=== PATIENT | female | born 1945 | race Caucasian/White ===

== ENCOUNTER 2016-04-21 06:22 | Inpatient (IN) | payer MEDICARE, OTHER ==
--- NOTE | ~2016-04-21 | DS ---
Discharge Summary [facility] [address] [place]. [address] NAME: MARYJANE RIDLEY : 45 STATUS : DIS IN PAT#: [id number] AGE: 70 ADM/REG DATE : 04/21/16 MR#: [id number] REPORT SERV DATE: 04/27/16 DICTATED BY: AMY ALEXANDER II DATE: 04/26/16 REPORT STATUS : Draft TRANSCRIBED BY: MODL DATE: 04/26/16 ADMISSION DATE: 04/21/2016 DISCHARGE DATE: 04/26/2016 DISCHARGE DIAGNOSES: 1. Acute sinusitis. 2. Acute bronchitis with questionable pneumonia. 3. Essential hypertension. 4. Syncopal episode, possibly secondary to hydralazine versus vasovagal. 5. Epistaxis. 6. Paroxysmal atrial fibrillation, on Eliquis. 7. Hyponatremia, resolved. 8. Diarrhea, resolved. BRIEF HISTORY OF PRESENT ILLNESS: The patient is a 70-year-old female with the above history, who presented to [facility] due to cough and sinus congestion concerning for pneumonia. For detailed history and physical examination, please see Dr. Marlys Boucher's note from 04/21/2016. HOSPITAL COURSE: For details of the patient's hospital course from date of admission through 04/25/2016, please see Dr. Hernandez's interim summary from that date. Regarding the patient's bronchitis and sinusitis, the patient has been on Levaquin for five days. Notes that she has been admitted, has had no fever, and her white count is normal. She still has some dry nonproductive cough as well as sinus congestion though she notes some improvement. She has some crackles in her lung and a CT scan done of her abdomen on admission showed some possible right lower lobe pneumonia versus atelectasis but no obvious pneumonia. We will continue her Levaquin for a total of seven days. Otherwise, she has had difficulty maintaining control of her blood pressure while in the hospital. Her spironolactone was held on admission, and she was given p.r.n. hydralazine. The patient states she reacted very poorly after getting IV hydralazine, felt sick, and that is when she apparently had a syncopal episode getting back in bed from the bathroom. Carotid Dopplers are normal, telemetry is unremarkable, and currently she has been asymptomatic for several days. At this point, we will continue her home regimen for blood pressure. We will resume her Eliquis for paroxysmal atrial fibrillation. She has not had any further epistaxis and her hemoglobin is stable. At this point, she is stable for discharge, and we will have her follow up with Dr. Posadas in the next week or two. DISCHARGE MEDICATIONS: 1. Eliquis 5 mg p.o. b.i.d. 2. Lipitor 20 mg p.o. at bedtime. 3. Vitamin B tab daily. 4. Coreg 6.25 mg p.o. b.i.d. 5. Cozaar 100 mg p.o. at bedtime. 6. Multivitamin daily. 7. Solano-3 fatty acid 1200 mg p.o. before lunch. 8. Prilosec 20 mg p.o. daily p.r.n. Discharge Summary [address] [address] NAME: MARYJANE RIDLEY : 45 STATUS : DIS IN PAT#: [id number] AGE: 70 ADM/REG DATE : 04/21/16 MR#: [id number] REPORT SERV DATE: 04/27/16 DICTATED BY: AMY ALEXANDER II DATE: 04/26/16 REPORT STATUS : Draft TRANSCRIBED BY: AMILCAR DATE: 04/26/16 9. Aldactone 12.5 mg p.o. b.i.d. 10.Vitamin E tab. 11.Levaquin 750 mg p.o. daily for two more days. DISCHARGE INSTRUCTIONS: The patient will follow with Dr. Franck Posadas in one to two weeks. EVAN/AMILCAR y Alexander II, MD / [id number] CC: MD Franck Shaikh II, M.D.
--- NOTE | ~2016-04-21 | IDS ---
Interim Discharge Summary [facility] [address] [place]. [address] NAME: MARYJANE RIDLEY : 45 STATUS : ADM IN PAT#: [id number] AGE: 70 ADM/REG DATE : 04/21/16 MR#: [id number] REPORT SERV DATE: 04/25/16 DICTATED BY: EDER HERNANDEZ DATE: 04/25/16 REPORT STATUS : Draft TRANSCRIBED BY: MODL DATE: 04/25/16 ADMISSION DATE: 04/21/2016 DISCHARGE DATE: DATE OF INTERIM SUMMARY: 04/25/2016. INTERIM DIAGNOSES: 1. Benign essential hypertension. 2. Syncope, most likely vasovagal in nature. 3. Epistaxis. 4. Paroxysmal atrial fibrillation. 5. Hyponatremia, now resolved. 6. Acute bronchitis, stable. 7. Acute sinusitis, currently on oral Levaquin. 8. Diarrhea, resolved. 9. Does not appear to have gastrointestinal bleeding as hemoglobin and hematocrit remains stable. BRIEF HISTORY OF PRESENT ILLNESS: The patient is a 70-year-old female with multiple comorbidities who presented to the hospital with cough and upper respiratory-type symptoms thinking that she may have pneumonia, so she was admitted. For detailed history and physical exam, please see note dictated by Dr. Marlys Boucher on 04/21/2016. HOSPITAL COURSE: After being admitted to the hospital, this patient was given broad-spectrum antibiotics, aggressive nebulizing treatments. She had nosebleed and then she had black tarry stools. Dr. Boucher thought that she had a gastrointestinal bleed, however, I have monitored her H and H over the last four days and it has remained stable. Her nosebleed has resolved as well. We have reassured the patient. CT of the face was done and that revealed acute sinusitis. So, we have switched her to oral Levaquin. She has been doing well. She is off oxygen. She is feeling better. Her hyponatremia and her hypokalemia currently have resolved. At this time, the issue remains that she had a syncopal episode day before yesterday getting up to the bathroom and this was thought to be mainly due to use of hydralazine. We have discontinued her hydralazine. We have restarted all her blood pressure medications and I have increased her Coreg to 6.25 mg twice daily for further management of blood pressure. If her blood pressure remained stable and she is ambulatory, she may be discharged in the home setting in the morning. We did do a two-dimensional echocardiogram, which showed an ejection fraction of 55% with mild diastolic dysfunction, but otherwise, unremarkable. Carotid ultrasound of the neck has been pending. MRI of the head was not done because the patient had no neurological deficits. DISPOSITION: Will be home when blood pressure stable. ANGELLA/AMILCAR Interim Discharge Summary [address] [place]. [address] NAME: MARYJANE RIDLEY : 45 STATUS : ADM IN [facility]#: [id number] AGE: 70 ADM/REG DATE : 04/21/16 MR#: [id number] REPORT SERV DATE: 04/25/16 DICTATED BY: EDER HERNANDEZ DATE: 04/25/16 REPORT STATUS : Draft TRANSCRIBED BY: AMILCAR DATE: 04/25/16 Eder Hernandez M.D. / [id number] CC: Eder Hernandez M.D.
--- NOTE | ~2016-04-21 | HP ---
History And Physical [facility] [address] [place]. [address] NAME: MARYJANE RIDLEY : 45 STATUS : ADM IN [facility]#: [id number] AGE: 70 ADM/REG DATE : 04/21/16 MR#: [id number] REPORT SERV DATE: 04/21/16 DICTATED BY: MARLYS BOUCHER DATE: 04/21/16 REPORT STATUS : Draft TRANSCRIBED BY: MODL DATE: 04/21/16 DATE OF ADMISSION: 04/21/2016 CHIEF COMPLAINT: Cough, congestion, weakness, decreased p.o. intake, and diarrhea for one week. HISTORY OF PRESENT ILLNESS: This is a very pleasant 70-year-old female. She has a history of hypertension, GERD, history of breast cancer with left mastectomy and reconstruction, prior history of hyponatremia, history of paroxysmal atrial fibrillation, that she has been presenting today to [facility] with complaints starting about one week ago with cough, congestion, rhinorrhea, decreased p.o. intake, myalgia, arthralgia, and subjective fevers as well as weakness. It is important to note that she had significant decreased p.o. intake with a diminished appetite and very poor p.o. intake and as a result, she called her primary care provider, who prescribed some amoxicillin that she took it only for one day. This morning she developed some diarrhea as well and as a result feeling so weak, sick, and tired she presented to [facility]. She did not have any abdominal pain, nausea, or vomiting. She feels extremely tired and weak. She does not drink excessive water. In fact, she has poor p.o. intake over the last couple of few days. After she has been evaluated in the emergency room and after initial evaluation, Hospitalist Service has been asked for admission, further evaluation, and treatment. PAST MEDICAL HISTORY: Significant for hypertension, GERD, history of breast cancer with left mastectomy and reconstruction and also history of paroxysmal atrial fibrillation. PAST SURGICAL HISTORY: Hysterectomy and left mastectomy with reconstruction. SOCIAL HISTORY: She is a nonsmoker, no drinking, no IV drugs. She quit smoking in 1997. ALLERGIES: SHE DOES NOT HAVE ANY DRUG ALLERGY EXCEPT TO SHE SAID UNKNOWN BLOOD CLOTTING MEDICINE. FAMILY HISTORY: Significant for coronary artery disease. MEDICATIONS: At home include Coreg, Eliquis, omeprazole, also losartan, atorvastatin, and Aldactone. REVIEW OF SYSTEMS: A 14-point review of systems has been obtained and pertinent positive has been listed into the history of present illness. Otherwise, negative except those underlying above. PHYSICAL EXAMINATION: VITAL SIGNS: Currently, the patient is afebrile. Blood pressure 141/74, heart rate 69, respiratory rate 18, saturating 96% on room air. GENERAL: She is a very pleasant, well-developed, well-nourished female, sick appearing, in no acute distress. She is alert and oriented x3. Nonfocal. She follows commands appropriately. History And Physical [address] [address] NAME: MARYJANE RIDLEY : 45 STATUS : ADM IN [facility]#: [id number] AGE: 70 ADM/REG DATE : 04/21/16 MR#: [id number] REPORT SERV DATE: 04/21/16 DICTATED BY: MARLYS BOUCHER DATE: 04/21/16 REPORT STATUS : Draft TRANSCRIBED BY: AMILCAR DATE: 04/21/16 HEENT: Show normocephalic, atraumatic. Throat is clear. Pupils are round and reactive to light. Extraocular movements intact. NECK: No JVD. No lymphadenopathy. No thyromegaly appreciated. CHEST: Evaluation shows bilateral air entry. Clear anteroposterior. No wheezes, crackles, or rhonchi appreciated. CARDIOVASCULAR: She has regular rate and rhythm. S1, S2 positive. No S3, no S4. No murmurs, rubs, or gallops appreciated. ABDOMEN: Soft, positive bowel sounds. Nontender. No guarding. No rebound. EXTREMITIES: No clubbing, cyanosis, or edema. NEUROLOGIC: She is alert and oriented x3. She is nonfocal. She follows commands appropriately. LABORATORY DATA: Labs from today include sodium 125, potassium 4.4, chloride 93, CO2 of 19, BUN 18, creatinine 0.77, glucose is 99. Her white count is 3.9, hemoglobin 12.9, hematocrit 37.2, platelets are 136, and her influenza screen has been negative. She has chest EKG shows normal sinus rhythm and her chest x-ray PA and lateral performed in the emergency room shows lungs clear, heart of normal size. ASSESSMENT AND PLAN: This is a very pleasant 70-year-old female with, 1. Hyponatremia likely disease multifactorial secondary to medications, decreased p.o. intake with some diarrhea as well. Suspect this is volume depleted. I am going to hydrate her. We are going to check some TSH and free T4. We are going to check a.m. cortisol level. We are going to check serum osmolality and urine for sodium, creatinine osmolality. We are going to hold her Aldactone as well and encourage p.o. intake and hydrate her as well. 2. Acute bronchitis with rhino-bronchial syndrome. We are going to place her on antibiotics through the IV. Continue hydration, Mucinex, Nasonex. We will check strep screen as well, blood cultures as well as UA and urine cultures. Nebulizers p.r.n. 3. Hypertension. We are going to continue her Coreg, continue her losartan and hold her Aldactone, p.r.n. hydralazine as needed. 4. History of paroxysmal atrial fibrillation. Continue her Eliquis. 5. Hyperlipidemia, continue her atorvastatin. 6. History of gastroesophageal reflux disease. We will continue her home medication. We will place her on electrolyte protocol as well. Further workup and recommendation pending above. CF/MODL Marlys Boucher M.D. / [id number] CC: Marlys Boucher M.D.
[~2016-04-21 06:22] MED LIST: BP MEDICATION; CAT1 PO; COZAAR100 MG PO; FISH-EPA1000 MG PO; MULTIVITAMI1 PO; NORV10 PO; OMEPRAZOLE PO; PRILOSEC OTC20 MG PO; PROTONIX PO; TETRACYCLINE250 MG OR; ZIAC2 PO; ZOFRAN4 PO
[2016-04-21 07:44] LABS: CALCIUM, SERUM 8.4 MG/DL (8.5-10.4); CHLORIDE, SERUM 93 MMOL/L (96-112); CREATININE 0.78 MG/DL (0.55-1.02); GFR AFRICAN AMERICAN 89 ML/MIN (>=60); GFR NON AFRICAN AMERICAN 77 ML/MIN (>=60); GLUCOSE, SERUM 99 MG/DL (60-99); SODIUM, SERUM 125 MMOL/L (135-148)
[2016-04-21 07:44] LABS: INFLUENZA A SCREEN NEGATIVE (NEGATIVE); INFLUENZA B SCREEN NEGATIVE (NEGATIVE)
[2016-04-21 07:45] LABS: BUN (BLOOD UREA NITROGEN) 10 MG/DL (6-23); CO2 (CARBON DIOXIDE) 19 MMOL/L (24-34); POTASSIUM, SERUM 4.4 MMOL/L (3.5-5.3)
[2016-04-21 07:51] LABS: BASOPHILS 0.3 %; BASOPHILS ABSOLUTE 0.01 10/3/uL (0.0-0.16); EOSINOPHILS 0.3 %; EOSINOPHILS ABSOLUTE 0.01 10/3/uL (0.0-0.53); HEMATOCRIT 37.2 % (36.0-48.0); HEMOGLOBIN 12.9 g/dL (12.0-16.0); IMMATURE GRANULOCYTES 0.3 %; IMMATURE GRANULOCYTES ABSOLUTE 0.01 10/3/uL (0.0-0.11); LYMPHOCYTES 15.3 %; LYMPHOCYTES ABSOLUTE 0.59 10/3/uL (0.67-4.30); MEAN CORPUS HGB CONC 34.7 g/dL (32.0-36.0); MEAN CORPUSCULAR HEMOGLOB 29.5 pg (26.0-34.0); MEAN CORPUSCULAR VOLUME 84.9 fL (80-100); MEAN PLATELET VOLUME 10.4 fL (9.2-13.0); MONOCYTES 7.5 %; MONOCYTES ABSOLUTE 0.29 10/3/uL (0.21-1.20); NEUTROPHILS 76.3 %; NEUTROPHILS ABSOLUTE 2.94 10/3/uL (2.02-8.40); RBC DISTRIBUTION WIDTH 13.3 % (12.0-16.0); RED CELL COUNT 4.38 10/6/uL (4.0-5.6); WHITE BLOOD CELLS 3.9 10/3/uL (4.5-10.5)
[2016-04-21 08:00] LABS: MANUAL DIFF NO %; PLATELET COUNT 136 10/3/uL (150-400)
[2016-04-21] MEDS ORDERED: FISH OIL1200 MG PO (09:08)
[2016-04-21] MEDS ORDERED: COREG6 PO (09:09)
[2016-04-21] MEDS ORDERED: SPIRO25 PO (09:09)
[2016-04-21] MEDS ORDERED: ELIQUIS 5 MG TAB5 MG PO (09:09)
[2016-04-21] MEDS ORDERED: LIPITOR20 PO (09:10)
[2016-04-21] MEDS ORDERED: COZAAR100 MG PO (09:10)
[2016-04-21] MEDS ORDERED: MULTIVIT/MIN PO (09:10)
[2016-04-21] MEDS ORDERED: VITAMIN B PO (09:11)
[2016-04-21] MEDS ORDERED: VITAMIN E PO (09:11)
[2016-04-21] MEDS ORDERED: AMOXIL500 MG PO (09:11)
[2016-04-21] MEDS ORDERED: PRILO PO (09:12)
[2016-04-21 14:18] LABS: PROCALCITONIN <0.05 ng/mL (<0.5)
[2016-04-21 14:37] LABS: INTERNATIONAL NORMAL RATI 1.3 UNITS (-); PARTIAL THROMBO TIME 35.4 SEC (22.5-37.2)
[2016-04-21 14:38] LABS: PROTIME (NOT ORD) 16.5 SEC (12.0-14.5)
[2016-04-21 15:06] LABS: FREE T4 1.04 NG/DL (0.76-1.46); TROPONIN I <0.02 NG/ML (<0.05)
[2016-04-21 15:07] LABS: ACETAMINOPHEN LEVEL (TYLENOL) < 2.0 MCG/ML (10.0-20.0); ALCOHOL < 10 MG/DL (0); SALICYLATE < 1.7 MG/DL (-)
[2016-04-21 16:04] LABS: DIRECT BILIRUBIN 0.2 MG/DL (0.0-0.4); INDIRECT BILIRUBIN(NOT ORDER) 0.8 MG/DL (0.1-0.9); TOTAL PROTEIN 6.2 G/DL (6.0-8.5)
[2016-04-21 16:05] LABS: ALBUMIN 3.2 G/DL (3.5-5.0)
[2016-04-21 16:59] LABS: WBC (NOT ORDERED) (RFLEX) 0 (0-5)
[2016-04-21 17:24] LABS: ASCORBIC ACID (UR NOT ORDER) NEG (NEG); BILIRUBIN, URINE NEGATIVE (NEG); KETONE, URINE TRACE MG/DL (NEG); LEUKOCYTE ESTERASE(NOT OR NEG (NEG)
[2016-04-21 18:40] LABS: CREATININE, URINE 29.2 MG/DL
[2016-04-22 05:16] LABS: GLYCOHEMOGLOBIN (HbA1c) 5.3 % (4.7-6.1)
[2016-04-22 07:02] LABS: BASOPHILS 0.2 %; BASOPHILS ABSOLUTE 0.01 10/3/uL (0.0-0.16); EOSINOPHILS 0.2 %; EOSINOPHILS ABSOLUTE 0.01 10/3/uL (0.0-0.53); HEMATOCRIT 37.7 % (36.0-48.0); HEMOGLOBIN 13.5 g/dL (12.0-16.0); IMMATURE GRANULOCYTES 0.2 %; IMMATURE GRANULOCYTES ABSOLUTE 0.01 10/3/uL (0.0-0.11); LYMPHOCYTES 14.2 %; MEAN CORPUS HGB CONC 35.8 g/dL (32.0-36.0); MEAN CORPUSCULAR HEMOGLOB 30.5 pg (26.0-34.0); MEAN CORPUSCULAR VOLUME 85.1 fL (80-100); MEAN PLATELET VOLUME 10.8 fL (9.2-13.0); MONOCYTES 4.5 %; MONOCYTES ABSOLUTE 0.19 10/3/uL (0.21-1.20); NEUTROPHILS 80.7 %; NEUTROPHILS ABSOLUTE 3.42 10/3/uL (2.02-8.40); PLATELET COUNT 136 10/3/uL (150-400); RED CELL COUNT 4.43 10/6/uL (4.0-5.6); WHITE BLOOD CELLS 4.2 10/3/uL (4.5-10.5)
[2016-04-22 07:03] LABS: MANUAL DIFF NO %
[2016-04-22 07:10] LABS: ALBUMIN 3.2 G/DL (3.5-5.0); ALKALINE PHOSPHATASE 128 U/L (45-117); BUN (BLOOD UREA NITROGEN) 13 MG/DL (6-23); CALCIUM, SERUM 8.4 MG/DL (8.5-10.4); CHLORIDE, SERUM 94 MMOL/L (96-112); CO2 (CARBON DIOXIDE) 21 MMOL/L (24-34); CREATININE 0.66 MG/DL (0.55-1.02); GFR AFRICAN AMERICAN 104 ML/MIN (>=60); GFR NON AFRICAN AMERICAN 90 ML/MIN (>=60); GLOBULIN 3.1 G/DL (2.5-4.1); GLUCOSE, SERUM 102 MG/DL (60-99); POTASSIUM, SERUM 3.9 MMOL/L (3.5-5.3); SGOT(AST) 24 U/L (5-40); SGPT(ALT) 25 U/L (5-65); SODIUM, SERUM 127 MMOL/L (135-148); TOTAL PROTEIN 6.3 G/DL (6.0-8.5)
[2016-04-22 12:09] LABS: HEMATOCRIT 34.8 % (36.0-48.0); HEMOGLOBIN 12.6 g/dL (12.0-16.0)
[2016-04-22 17:44] LABS: HEMATOCRIT 35.8 % (36.0-48.0)
[2016-04-22 22:09] LABS: HEMOGLOBIN 13.9 g/dL (12.0-16.0)
[2016-04-22 22:10] LABS: HEMATOCRIT 40.2 % (36.0-48.0)
[2016-04-23 04:26] LABS: BASOPHILS 0.2 %; BASOPHILS ABSOLUTE 0.01 10/3/uL (0.0-0.16); EOSINOPHILS 0.2 %; EOSINOPHILS ABSOLUTE 0.01 10/3/uL (0.0-0.53); HEMOGLOBIN 11.8 g/dL (12.0-16.0); IMMATURE GRANULOCYTES 0.2 %; IMMATURE GRANULOCYTES ABSOLUTE 0.01 10/3/uL (0.0-0.11); LYMPHOCYTES 18.3 %; MEAN CORPUS HGB CONC 36.1 g/dL (32.0-36.0); MEAN CORPUSCULAR HEMOGLOB 30.6 pg (26.0-34.0); MEAN CORPUSCULAR VOLUME 84.7 fL (80-100); MEAN PLATELET VOLUME 10.5 fL (9.2-13.0); MONOCYTES 6.3 %; MONOCYTES ABSOLUTE 0.31 10/3/uL (0.21-1.20); NEUTROPHILS 74.8 %; NEUTROPHILS ABSOLUTE 3.67 10/3/uL (2.02-8.40); PLATELET COUNT 137 10/3/uL (150-400); RBC DISTRIBUTION WIDTH 12.9 % (12.0-16.0); RED CELL COUNT 3.86 10/6/uL (4.0-5.6); WHITE BLOOD CELLS 4.9 10/3/uL (4.5-10.5)
[2016-04-23 04:27] LABS: HEMATOCRIT 32.7 % (36.0-48.0); MANUAL DIFF NO %
[2016-04-23 04:40] LABS: ALBUMIN 2.8 G/DL (3.5-5.0); ALKALINE PHOSPHATASE 108 U/L (45-117); BUN (BLOOD UREA NITROGEN) 10 MG/DL (6-23); CHLORIDE, SERUM 101 MMOL/L (96-112); CO2 (CARBON DIOXIDE) 23 MMOL/L (24-34); CREATININE 0.77 MG/DL (0.55-1.02); GFR AFRICAN AMERICAN 91 ML/MIN (>=60); GFR NON AFRICAN AMERICAN 78 ML/MIN (>=60); GLOBULIN 2.7 G/DL (2.5-4.1); GLUCOSE, SERUM 89 MG/DL (60-99); POTASSIUM, SERUM 3.8 MMOL/L (3.5-5.3); SGOT(AST) 16 U/L (5-40); SGPT(ALT) 19 U/L (5-65); SODIUM, SERUM 136 MMOL/L (135-148); TOTAL PROTEIN 5.5 G/DL (6.0-8.5)
[2016-04-24 00:36] LABS: HEMATOCRIT 34.3 % (36.0-48.0); HEMOGLOBIN 12.4 g/dL (12.0-16.0)
[2016-04-24 06:34] LABS: BASOPHILS 0.2 %; BASOPHILS ABSOLUTE 0.01 10/3/uL (0.0-0.16); EOSINOPHILS 0.5 %; EOSINOPHILS ABSOLUTE 0.03 10/3/uL (0.0-0.53); HEMATOCRIT 34.2 % (36.0-48.0); HEMOGLOBIN 12.2 g/dL (12.0-16.0); IMMATURE GRANULOCYTES 0.2 %; IMMATURE GRANULOCYTES ABSOLUTE 0.01 10/3/uL (0.0-0.11); LYMPHOCYTES 13.4 %; LYMPHOCYTES ABSOLUTE 0.78 10/3/uL (0.67-4.30); MANUAL DIFF NO %; MEAN CORPUS HGB CONC 35.7 g/dL (32.0-36.0); MEAN CORPUSCULAR HEMOGLOB 30.5 pg (26.0-34.0); MEAN CORPUSCULAR VOLUME 85.5 fL (80-100); MEAN PLATELET VOLUME 10.5 fL (9.2-13.0); MONOCYTES 5.9 %; MONOCYTES ABSOLUTE 0.34 10/3/uL (0.21-1.20); NEUTROPHILS 79.8 %; NEUTROPHILS ABSOLUTE 4.63 10/3/uL (2.02-8.40); PLATELET COUNT 147 10/3/uL (150-400); RBC DISTRIBUTION WIDTH 13.1 % (12.0-16.0); WHITE BLOOD CELLS 5.8 10/3/uL (4.5-10.5)
[2016-04-24 06:44] LABS: BUN (BLOOD UREA NITROGEN) 8 MG/DL (6-23); CALCIUM, SERUM 8.1 MG/DL (8.5-10.4); CHLORIDE, SERUM 102 MMOL/L (96-112); CO2 (CARBON DIOXIDE) 22 MMOL/L (24-34); CREATININE 0.66 MG/DL (0.55-1.02); GFR AFRICAN AMERICAN 104 ML/MIN (>=60); GFR NON AFRICAN AMERICAN 90 ML/MIN (>=60); GLUCOSE, SERUM 98 MG/DL (60-99); PHOSPHORUS, SERUM 2.5 MG/DL (2.5-4.5); POTASSIUM, SERUM 3.8 MMOL/L (3.5-5.3); SODIUM, SERUM 135 MMOL/L (135-148); TROPONIN I <0.02 NG/ML (<0.05)
[2016-04-25 04:52] LABS: HEMATOCRIT 34.1 % (36.0-48.0); HEMOGLOBIN 11.8 g/dL (12.0-16.0); MEAN CORPUS HGB CONC 34.6 g/dL (32.0-36.0); MEAN CORPUSCULAR HEMOGLOB 30.2 pg (26.0-34.0); MEAN CORPUSCULAR VOLUME 87.2 fL (80-100); MEAN PLATELET VOLUME 10.9 fL (9.2-13.0); PLATELET COUNT 168 10/3/uL (150-400); RBC DISTRIBUTION WIDTH 13.5 % (12.0-16.0); RED CELL COUNT 3.91 10/6/uL (4.0-5.6); WHITE BLOOD CELLS 6.3 10/3/uL (4.5-10.5)
[2016-04-25 04:54] LABS: MANUAL DIFF YES %
[2016-04-25 05:01] LABS: ALBUMIN 2.8 G/DL (3.5-5.0); BUN (BLOOD UREA NITROGEN) 8 MG/DL (6-23); CALCIUM, SERUM 8.3 MG/DL (8.5-10.4); CHLORIDE, SERUM 101 MMOL/L (96-112); CO2 (CARBON DIOXIDE) 26 MMOL/L (24-34); CREATININE 0.81 MG/DL (0.55-1.02); GFR AFRICAN AMERICAN 85 ML/MIN (>=60); GFR NON AFRICAN AMERICAN 74 ML/MIN (>=60); GLUCOSE, SERUM 83 MG/DL (60-99); PHOSPHORUS, SERUM 2.2 MG/DL (2.5-4.5); POTASSIUM, SERUM 3.8 MMOL/L (3.5-5.3); SODIUM, SERUM 136 MMOL/L (135-148)
[2016-04-25 06:25] LABS: BAND NEUTROPHILS 1 %; LYMPHOCYTES 26 %; LYMPHOCYTES ABSOLUTE (CALC) 1.64 10/3/uL (0.67-4.30); MONOCYTES 3 %; MONOCYTES ABSOLUTE (CALC) 0.19 10/3/uL (0.21-1.20); NEUTROPHILS ABSOLUTE (CALC) 4.47 10/3/uL (2.02-8.40); PLATELET ESTIMATE ADQ (ADEQUATE); SEGMENTED NEUTROPHIL (0) 70 %; TOTAL NUCLEATED CELLS 100
[2016-04-25 06:26] LABS: RBC MORPHOLOGY NORM (NORMAL)
[2016-04-26 05:56] LABS: BASOPHILS 0.3 %; BASOPHILS ABSOLUTE 0.02 10/3/uL (0.0-0.16); EOSINOPHILS 2.5 %; EOSINOPHILS ABSOLUTE 0.19 10/3/uL (0.0-0.53); HEMATOCRIT 33.8 % (36.0-48.0); HEMOGLOBIN 11.9 g/dL (12.0-16.0); IMMATURE GRANULOCYTES 0.3 %; IMMATURE GRANULOCYTES ABSOLUTE 0.02 10/3/uL (0.0-0.11); LYMPHOCYTES 13.1 %; LYMPHOCYTES ABSOLUTE 0.98 10/3/uL (0.67-4.30); MANUAL DIFF NO %; MEAN CORPUS HGB CONC 35.2 g/dL (32.0-36.0); MEAN CORPUSCULAR HEMOGLOB 30.1 pg (26.0-34.0); MEAN CORPUSCULAR VOLUME 85.6 fL (80-100); MEAN PLATELET VOLUME 10.6 fL (9.2-13.0); MONOCYTES 6.8 %; MONOCYTES ABSOLUTE 0.51 10/3/uL (0.21-1.20); NEUTROPHILS ABSOLUTE 5.76 10/3/uL (2.02-8.40); PLATELET COUNT 183 10/3/uL (150-400); RBC DISTRIBUTION WIDTH 13.3 % (12.0-16.0); RED CELL COUNT 3.95 10/6/uL (4.0-5.6); WHITE BLOOD CELLS 7.5 10/3/uL (4.5-10.5)
[2016-04-26 06:07] LABS: ALBUMIN 2.9 G/DL (3.5-5.0); BUN (BLOOD UREA NITROGEN) 10 MG/DL (6-23); CALCIUM, SERUM 8.5 MG/DL (8.5-10.4); CHLORIDE, SERUM 98 MMOL/L (96-112); CO2 (CARBON DIOXIDE) 26 MMOL/L (24-34); CREATININE 0.76 MG/DL (0.55-1.02); GFR AFRICAN AMERICAN 92 ML/MIN (>=60); GFR NON AFRICAN AMERICAN 79 ML/MIN (>=60); GLUCOSE, SERUM 96 MG/DL (60-99); SODIUM, SERUM 135 MMOL/L (135-148)
[2016-04-26 06:09] LABS: PHOSPHORUS, SERUM 2.9 MG/DL (2.5-4.5)
[2016-04-26] MEDS ORDERED: LEVAQUIN750 MG PO (11:12)
[2016-10-18] MEDS ORDERED: SPIRO25 PO (14:52)
[2016-10-18] MEDS ORDERED: LIPITOR20 PO (14:52)
[2016-10-18] MEDS ORDERED: ELIQUIS 5 MG TAB5 MG PO (14:52)
[2016-10-18] MEDS ORDERED: PRILO PO (14:52)
[2016-10-18] MEDS ORDERED: PRIN10 PO (14:53)
[2016-10-18] MEDS ORDERED: VITAMIN B PO (14:53)
[2016-10-18] MEDS ORDERED: FISH OIL1200 MG PO (14:53)
[2016-10-18] MEDS ORDERED: CENTRUM PO (14:53)
== END 2016-04-26 13:00 | disposition home or self-care (01) | DRG 640 ==
LOC: ER 06:22 → 6NO 09:50
PROVIDERS: Internal Medicine; Nurse Practitioner; Nurse Practitioner Family
DX: E87.1 Hypo-osmolality and hyponatremia (principal); J18.1 Lobar pneumonia, unspecified organism; E86.9 Volume depletion, unspecified; I48.0 Paroxysmal atrial fibrillation; R00.1 Bradycardia, unspecified; I10 Essential (primary) hypertension; R55 Syncope and collapse; E87.6 Hypokalemia; J01.90 Acute sinusitis, unspecified; J20.9 Acute bronchitis, unspecified; K21.9 Gastro-esophageal reflux disease without esophagitis; R19.7 Diarrhea, unspecified; R04.0 Epistaxis; Z85.3 Personal history of malignant neoplasm of breast; Z90.12 Acquired absence of left breast and nipple; Z79.02 Long term (current) use of antithrombotics/antiplatelets
CPT/HCPCS: 36600; 70450; 70486; 71010; 71020; 74176; 80048; 80053; 80069; 80076; 80307; 81001; 82272; 82330; 82533; 82570; 82803; 82947; 82962; 83036; 83615; 83735; 83930; 83935; 84100; 84132; 84145; 84295; 84300; 84439; 84443; 84484; 85014; 85018; 85025; 85610; 85730; 87040; 87045; 87046; 87046-59; 87070; 87328; 87329; 87493; 87493-59; 87804; 87880; 87899; 87899-59; 89055; 93005; 93306; 93880; 96374; 99285; A9270-GY; C9113; J0360; J1956; J2405; J2550